=== PATIENT | male | born 1990 | race Caucasian/White ===

== ENCOUNTER 2024-10-18 14:35 | Outpatient (CLI) | payer BC, SELFPAY | END 2024-10-18 14:36 | disposition home or self-care (01) | LOC: NFLDREF 10-26 00:23 | PROVIDERS: PCP Family Medicine; Referring Provider Family Medicine; Visit Provider Family Medicine | DX: R73.03 Prediabetes (principal); G57.92 Unspecified mononeuropathy of left lower limb; Z13.220 Encounter for screening for lipoid disorders | CPT/HCPCS: 80053; 80061; 82607; 82746 ==